=== PATIENT | male | born 1945 | race Caucasian/White ===

== ENCOUNTER 2016-08-01 18:09 | Inpatient (IN) | payer MEDICARE, MEDICAID ==
[~2016-08-01] VITALS: Ht 172.7 cm; Wt 68.5 kg
[2016-08-01] MEDS ORDERED: TERA10CA4 PO (19:15)
[2016-08-01] MEDS ORDERED: CLOP75TA2 PO (19:15)
[2016-08-01] MEDS ORDERED: PANT40TA4 PO (19:15)
[2016-08-01] MEDS ORDERED: ISOS30TA6 PO (19:15)
[2016-08-01 19:30] VITALS: BP 109/68
--- NOTE | 2016-08-01 19:30 | NUR ---
GPS ADMISSION NOTE, RECEIVED PATIENT FROM [facility] / [facility] / [facility] . PATIENT ARRIVED ON THIS UNIT AT 1930 VIA WHEELCHAIR 1 MANUAL LATHE OPERATOR ESCORT. PATIENT ADMITTED ON A 5150 HOLD FOR DTS. PER HOLD PATIENT HAS NUMEROUS MEDICAL COMPLAINTS. PATIENT REPORTED RECURRING INTRUSIVE THOUGHTS OF KILLING HIMSELF BY STEPPING IN FRONT OF A BUS OR VEHICLE THAT WOULD BE UNABLE TO STOP. PATIENT UNABLE TO CONTRACT FOR SAFETY, HOPELESS, FRIENDLESS, AND SEVERELY DEPRESSED. PATIENT PRESENT'S A CLEAR AND PRESENT DANGER TO HIMSELF DUE TO HIS MENTAL ILLNESS. THE 5150 WAS REVIEWED AND THE DOCUMENTATION IN THE 5150 HOLD APPEARS TO REFLECT THE PRESENTATION OF THE PATIENT. UPON FACE TO FACE ASSESSMENT PATIENT IS CURRENTLY LYING IN BED AWAKE, HAS NO S/S OR COMPLAINTS OF PAIN. PATIENT IS DISPLAYING NO S/S OF APPARENT DISTRESS. PATIENT BREATHING IS UNLABORED WITH EQUAL RISE AND FALL OF THE CHEST. PATIENT IS ALERT AND ORIENTATED X 3 ON ROOM AIR. PATIENT ASSISTED WITH TURING AND REPOSITIONING Q2HR AND PRN FOR COMFORT AND CIRCULATION. PATIENT HAS NO NEEDS AT THIS TIME. PATIENT IS NOTED TO BEING RESTLESS, ANXIOUS, DISHEVELED, DISORGANIZED, DEPRESSED, COOPERATIVE, AND NEEDS SOME REDIRECTION. PATIENT UNABLE TO CONTRACT FOR SAFETY. PATIENT IS UNDER THE PSYCHIATRIC CARE OF DR. CRAIG AND THE MEDICAL CARE OF DR JOSHI. PATIENT BELONGINGS WERE INVENTORIED AND CHECKED FOR CONTRABAND. ALL CONTRABAND REMOVED AND STORED IN PATIENT HALLWAY LOCKER. PATIENT ADVANCED DIRECTIVES PREFERENCE, IMMUNIZATIONS QUESTIONER, NECESSARY PAPERWORK, AND SKIN ASSESSMENT COMPLETED. PATIENT ORIENTATED TO ROOM, FLOOR, AND STAFF WITH ALL QUESTIONS ANSWERED. PATIENT EDUCATED ON THE USE OF THE CALL RUIZ. PATIENT BED SIDE RAILS ARE UP X 2 FOR SAFETY. PATIENT BED IS LOCKED, LOW, AND I WILL CONTINUE TO MONITOR THIS PATIENT Q 15 MIN WITH THE HELP OF STAFF TO MAINTAIN SAFETY.
[2016-08-01] MEDS ORDERED: FLUT1DIS INH (19:51)
[2016-08-01] MEDS ORDERED: QUET100T PO (19:52)
[2016-08-01] MEDS ORDERED: NITR0.4T6 SL (19:54)
[2016-08-01] MEDS ORDERED: CARV3.122 PO (19:56)
[2016-08-01] MEDS ORDERED: ALBU6.7H INH (19:57)
[2016-08-01] MEDS ORDERED: ASPI81TA2 PO (20:00)
[2016-08-01] MEDS ORDERED: DICL100G3 TP (20:00)
[2016-08-01] MEDS ORDERED: MAG HYDROX/AL HYDROX/SIMETH 30 ML UDC PO PRN (20:00)
[2016-08-01] MEDS ORDERED: LORAZEPAM 0.5 MG TABLET PO PRN (20:00)
[2016-08-01] MEDS ORDERED: MAGNESIUM HYDROXIDE 30 ML UDC PO PRN (20:00)
[2016-08-01] MEDS ORDERED: ACETAMINOPHEN 325 MG TABLET PO PRN (20:00)
--- NOTE | 2016-08-01 20:00 | NUR ---
GPS RN NOTE, PATIENT REFUSED TO HAVE A NICOTINE PATCH STATING, " I DON'T NEED USE A PATCH ". EDUCATED THE PATIENT ON THE RISKS AND BENEFITS OF TAKING AND REFUSING AFOREMENTIONED MEDICATION. WILL CONTINUE TO MONITOR THIS PATIENT.
[2016-08-01 20:04] VITALS: BP 109/68
[2016-08-01] MEDS ORDERED: NITROGLYCERIN 0.4 MG/TAB BOTTLE SL PRN (20:30)
[2016-08-01] MEDS: TEMAZEPAM 7.5 MG CAPSULE PO PRN (22:58)
--- NOTE | 2016-08-01 22:58 | NUR ---
GPS RN NOTE, PATIENT HAS A COMPLAINT OF NOT BEING ABLE TO SLEEP AND WOULD LIKE A SLEEPING AID AT THIS TIME. PATIENT VITAL SIGNS ARE STABLE. GAVE RESTORIL 7.5MG PO HS ORDERED. WILL REASSESS FOR INSOMNIA AND I WILL CONTINUE TO MONITOR THIS PATIENT.
[2016-08-02] MEDS ORDERED: ALBUTEROL FS 2.5 MG/3 ML VIAL.NEB NEB PRN (01:30)
[2016-08-02 06:48] LABS: CHOLESTEROL 176 mg/dL (<200); HDL CHOLESTEROL 66 mg/dL (40-60); LDL 73 mg/dL (0-99); TRIGLYCERIDES 151 mg/dL (30-150)
[2016-08-02 07:05] LABS: ALANINE AMINOTRANSFERASE 17 U/L (12-78); ALKALINE PHOSPHATASE 89 U/L (46-116); ASPARTATE AMINOTRANSFERASE 12 U/L (15-37); BILIRUBIN,TOTAL 0.2 mg/dL (0.2-1.0); CARBON DIOXIDE 25 mmol/L (21-32); CHLORIDE 105 mmol/L (98-107); CREATININE 0.6 mg/dL (0.6-1.3); GLUCOSE 97 mg/dL (74-106); POTASSIUM 4.3 mmol/L (3.5-5.1); SODIUM SERUM 140 mmol/L (136-145); TOTAL PROTEIN, SERUM 6.4 g/dL (6.4-8.2); UREA NITROGEN, BLOOD 13 mg/dL (7-18)
[2016-08-02 08:00] VITALS: BP 136/69
[2016-08-02] MEDS: FLUTICASONE/SALMETEROL DISKUS IH SCH ×2 (08:16→16:44)
[2016-08-02] MEDS: PANTOPRAZOLE 40 MG TABLET.DR PO SCH (08:17)
[2016-08-02] MEDS: ASPIRIN 81 MG TAB.CHEW PO SCH (08:17)
[2016-08-02] MEDS: CARVEDILOL 3.125 MG TABLET PO SCH ×2 (08:17→16:44)
[2016-08-02] MEDS: CLOPIDOGREL BISULFATE 75 MG TABLET PO SCH (08:18)
[2016-08-02] MEDS: TERAZOSIN HCL 5 MG CAPSULE PO SCH (08:18)
[2016-08-02] MEDS: NICOTINE PATCH (7MG) 7 MG PATCH.TD24 TD SCH (08:18)
[2016-08-02] MEDS: ISOSORBIDE MONONITRATE (30MG) 30 MG TAB.SR.24H PO SCH (08:18)
[2016-08-02 16:00] VITALS: BP 146/71
--- NOTE | 2016-08-02 17:05 | NUR ---
Initial Discharge plan :Pt. states he was staying at a room and board located at [address] [place] [address] but is unable to provide a phone number for SW to confirm. He also states he may leave there and go stay somewhere else and can provide different addresses if needed. SW will follow up with MD and will help form safe and proper discharge.
[2016-08-02 20:00] VITALS: BP 118/58
[2016-08-02] MEDS: TEMAZEPAM 7.5 MG CAPSULE PO PRN (20:29)
[2016-08-02] MEDS: QUETIAPINE FUMARATE 100 MG TABLET PO SCH (21:51)
[2016-08-03 08:00] VITALS: BP 139/68
[2016-08-03] MEDS: ESCITALOPRAM OXALATE (10 MG) 10 MG TABLET PO SCH (08:18)
[2016-08-03] MEDS: FLUTICASONE/SALMETEROL DISKUS IH SCH ×2 (08:18→16:14)
[2016-08-03] MEDS: CARVEDILOL 3.125 MG TABLET PO SCH ×2 (08:19→16:14)
[2016-08-03] MEDS: ISOSORBIDE MONONITRATE (30MG) 30 MG TAB.SR.24H PO SCH (08:19)
[2016-08-03] MEDS: PANTOPRAZOLE 40 MG TABLET.DR PO SCH (08:19)
[2016-08-03] MEDS: CLOPIDOGREL BISULFATE 75 MG TABLET PO SCH (08:19)
[2016-08-03] MEDS: ASPIRIN 81 MG TAB.CHEW PO SCH (08:20)
[2016-08-03] MEDS: TERAZOSIN HCL 5 MG CAPSULE PO SCH (08:20)
[2016-08-03] MEDS: NICOTINE PATCH (7MG) 7 MG PATCH.TD24 TD SCH (09:00)
[2016-08-03 16:00] VITALS: BP 100/56
[2016-08-03 20:00] VITALS: BP 119/50
[2016-08-03 20:44] VITALS: BP 119/65
[2016-08-03] MEDS: QUETIAPINE FUMARATE 100 MG TABLET PO SCH (21:12)
[2016-08-04] MEDS: PANTOPRAZOLE 40 MG TABLET.DR PO SCH (07:50)
[2016-08-04 08:05] VITALS: BP 137/67
[2016-08-04] MEDS: ASPIRIN 81 MG TAB.CHEW PO SCH (08:25)
[2016-08-04] MEDS: CLOPIDOGREL BISULFATE 75 MG TABLET PO SCH (08:26)
[2016-08-04] MEDS: ESCITALOPRAM OXALATE (10 MG) 10 MG TABLET PO SCH (08:26)
[2016-08-04] MEDS: ISOSORBIDE MONONITRATE (30MG) 30 MG TAB.SR.24H PO SCH (08:27)
[2016-08-04] MEDS: CARVEDILOL 3.125 MG TABLET PO SCH ×2 (08:27→18:03)
[2016-08-04] MEDS: TERAZOSIN HCL 5 MG CAPSULE PO SCH (08:27)
[2016-08-04] MEDS: NICOTINE PATCH (7MG) 7 MG PATCH.TD24 TD SCH (08:28)
[2016-08-04] MEDS: FLUTICASONE/SALMETEROL DISKUS IH SCH ×2 (08:30→18:03)
[2016-08-04] MEDS ORDERED: ALBUTEROL FS 2.5 MG/0.5 ML VIAL.NEB NEB PRN (13:30)
[2016-08-04 16:19] VITALS: BP 116/58
[2016-08-04 20:00] VITALS: BP 116/61
[2016-08-04] MEDS: QUETIAPINE FUMARATE 100 MG TABLET PO SCH (22:13)
[2016-08-05] MEDS: PANTOPRAZOLE 40 MG TABLET.DR PO SCH (07:39)
[2016-08-05] MEDS: FLUTICASONE/SALMETEROL DISKUS IH SCH ×2 (07:55→16:59)
[2016-08-05] MEDS: ESCITALOPRAM OXALATE (10 MG) 10 MG TABLET PO SCH (07:56)
[2016-08-05 08:00] VITALS: BP 110/49
[2016-08-05] MEDS: ISOSORBIDE MONONITRATE (30MG) 30 MG TAB.SR.24H PO SCH (08:00)
[2016-08-05] MEDS: ASPIRIN 81 MG TAB.CHEW PO SCH (08:01)
[2016-08-05] MEDS: CARVEDILOL 3.125 MG TABLET PO SCH ×2 (08:02→17:37)
[2016-08-05] MEDS: TERAZOSIN HCL 5 MG CAPSULE PO SCH (08:02)
[2016-08-05] MEDS: CLOPIDOGREL BISULFATE 75 MG TABLET PO SCH (08:03)
[2016-08-05] MEDS: NICOTINE PATCH (7MG) 7 MG PATCH.TD24 TD SCH (08:03)
[2016-08-05 16:00] VITALS: BP 120/60
[2016-08-05 20:12] VITALS: BP 119/57
[2016-08-05] MEDS: QUETIAPINE FUMARATE 100 MG TABLET PO SCH (21:33)
--- NOTE | 2016-08-05 22:00 | NUR ---
RN NOTES SKIN REASSESS PICTURE TAKEN PLACED IN THE CHART, RIGHT ARM/ LEFT ARM NO BRUISES NOTED SKIN INTACT AND CLEAR .
[2016-08-06 08:00] VITALS: BP 106/62
[2016-08-06] MEDS: PANTOPRAZOLE 40 MG TABLET.DR PO SCH (08:01)
[2016-08-06] MEDS: ISOSORBIDE MONONITRATE (30MG) 30 MG TAB.SR.24H PO SCH (08:35)
[2016-08-06] MEDS: ESCITALOPRAM OXALATE (10 MG) 10 MG TABLET PO SCH (08:36)
[2016-08-06] MEDS: ASPIRIN 81 MG TAB.CHEW PO SCH (08:36)
[2016-08-06] MEDS: CARVEDILOL 3.125 MG TABLET PO SCH ×3 (08:36→17:12)
[2016-08-06] MEDS: CLOPIDOGREL BISULFATE 75 MG TABLET PO SCH (08:36)
[2016-08-06] MEDS: FLUTICASONE/SALMETEROL DISKUS IH SCH ×2 (08:37→17:10)
[2016-08-06] MEDS: TERAZOSIN HCL 5 MG CAPSULE PO SCH (08:39)
[2016-08-06] MEDS: NICOTINE PATCH (7MG) 7 MG PATCH.TD24 TD SCH (08:39)
--- NOTE | 2016-08-06 09:11 | NUR ---
WYATT was asked to call [facility] [phone] to confirm that pt's electric wheelchair is still being held there and is in a safe place. WYATT was notified that pt. cannot return back to the room and board that the patient came from. Addendum: 08/10/16 at 0915 by ROBERT SCHNEIDER Information was provided by KD from intake, as she was told by the hospital from which he was referred to that the patient was homeless.
[2016-08-06 16:00] VITALS: BP 128/58
[2016-08-06] MEDS: QUETIAPINE FUMARATE 100 MG TABLET PO SCH (21:39)
[2016-08-06 22:36] VITALS: BP 124/64
[2016-08-07 08:00] VITALS: BP 155/61
[2016-08-07] MEDS: CLOPIDOGREL BISULFATE 75 MG TABLET PO SCH (08:02)
[2016-08-07] MEDS: NICOTINE PATCH (7MG) 7 MG PATCH.TD24 TD SCH (08:02)
[2016-08-07] MEDS: ESCITALOPRAM OXALATE (10 MG) 10 MG TABLET PO SCH (08:03)
[2016-08-07] MEDS: TERAZOSIN HCL 5 MG CAPSULE PO SCH (08:03)
[2016-08-07] MEDS: PANTOPRAZOLE 40 MG TABLET.DR PO SCH (08:04)
[2016-08-07] MEDS: ISOSORBIDE MONONITRATE (30MG) 30 MG TAB.SR.24H PO SCH (08:04)
[2016-08-07] MEDS: ASPIRIN 81 MG TAB.CHEW PO SCH (08:04)
[2016-08-07] MEDS: CARVEDILOL 3.125 MG TABLET PO SCH ×2 (08:05→16:37)
[2016-08-07] MEDS: FLUTICASONE/SALMETEROL DISKUS IH SCH ×2 (08:11→17:06)
--- NOTE | 2016-08-07 09:06 | NUR ---
Pt. was notified that the the room and board won't be able to accept him back and he will need placement. Pt. continues to insist that he can find a place to live in [place] as he knows the area and has friends that will help him out. SW regardless will look for an accepting facility, in case pt. decides to accept the placement option
[2016-08-07 16:00] VITALS: BP 120/54
[2016-08-07 21:26] VITALS: BP 97/60
[2016-08-07] MEDS: QUETIAPINE FUMARATE 100 MG TABLET PO SCH (21:30)
[2016-08-08 08:11] VITALS: BP 131/69
[2016-08-08] MEDS: CLOPIDOGREL BISULFATE 75 MG TABLET PO SCH (08:41)
[2016-08-08] MEDS: PANTOPRAZOLE 40 MG TABLET.DR PO SCH (08:41)
[2016-08-08] MEDS: ASPIRIN 81 MG TAB.CHEW PO SCH (08:41)
[2016-08-08] MEDS: ISOSORBIDE MONONITRATE (30MG) 30 MG TAB.SR.24H PO SCH (08:41)
[2016-08-08] MEDS: NICOTINE PATCH (7MG) 7 MG PATCH.TD24 TD SCH (08:41)
[2016-08-08] MEDS: CARVEDILOL 3.125 MG TABLET PO SCH ×2 (08:41→16:56)
[2016-08-08] MEDS: ESCITALOPRAM OXALATE (10 MG) 10 MG TABLET PO SCH (08:41)
[2016-08-08] MEDS: TERAZOSIN HCL 5 MG CAPSULE PO SCH (08:42)
[2016-08-08] MEDS: FLUTICASONE/SALMETEROL DISKUS IH SCH ×2 (08:51→16:58)
--- NOTE | 2016-08-08 15:00 | NUR ---
SW spoke with interstate planner Kp from [facility] [address] [facility] [place] [address] pt. is homeless and cannot return back to the room and board he was living at. Pt. has no where to go and is homeless. Pt[facility] automatic [facility] [address] [facility] .
[2016-08-08 16:14] VITALS: BP 98/54
[2016-08-08 20:18] VITALS: BP 122/66
[2016-08-08] MEDS: QUETIAPINE FUMARATE 100 MG TABLET PO SCH (21:27)
[2016-08-09 08:00] VITALS: BP 124/54
[2016-08-09] MEDS: ESCITALOPRAM OXALATE (10 MG) 10 MG TABLET PO SCH (08:09)
[2016-08-09] MEDS: FLUTICASONE/SALMETEROL DISKUS IH SCH ×2 (08:09→16:27)
[2016-08-09] MEDS: NICOTINE PATCH (7MG) 7 MG PATCH.TD24 TD SCH (08:11)
[2016-08-09] MEDS: ASPIRIN 81 MG TAB.CHEW PO SCH (08:11)
[2016-08-09] MEDS: CLOPIDOGREL BISULFATE 75 MG TABLET PO SCH (08:11)
[2016-08-09] MEDS: TERAZOSIN HCL 5 MG CAPSULE PO SCH (08:11)
[2016-08-09] MEDS: ISOSORBIDE MONONITRATE (30MG) 30 MG TAB.SR.24H PO SCH (08:12)
[2016-08-09] MEDS: PANTOPRAZOLE 40 MG TABLET.DR PO SCH (08:12)
[2016-08-09] MEDS: CARVEDILOL 3.125 MG TABLET PO SCH ×2 (08:14→16:34)
[2016-08-09 16:00] VITALS: BP 115/59
--- NOTE | 2016-08-09 16:28 | NUR ---
Pt.was referred to [facility] [address] [place] [address] will follow up wtih CJ
--- NOTE | 2016-08-09 16:40 | NUR ---
WYATT spoke with pt and pt. continues to refuse placement and wants to return back to [place], [place] to search for placement there. Pt. states he has friends there and will be able to find a perfect living arrangement for himself. WYATT spoke with Maureen from [facility] [phone] and he agreed to order picker/assembler the patient tomorrow. Maureen mentioned that pt. may be placed in a homeless senior care until further living arrangements are made. Pt. agrees with this plan. Will confirm with director and psychiatrist tomorrow.
[2016-08-09 20:00] VITALS: BP 141/66
[2016-08-09] MEDS: QUETIAPINE FUMARATE 100 MG TABLET PO SCH (21:12)
[2016-08-10] MEDS: ASPIRIN 81 MG TAB.CHEW PO SCH (08:27)
[2016-08-10] MEDS: ESCITALOPRAM OXALATE (10 MG) 10 MG TABLET PO SCH (08:27)
[2016-08-10] MEDS: TERAZOSIN HCL 5 MG CAPSULE PO SCH (08:27)
[2016-08-10] MEDS: PANTOPRAZOLE 40 MG TABLET.DR PO SCH (08:27)
[2016-08-10] MEDS: NICOTINE PATCH (7MG) 7 MG PATCH.TD24 TD SCH (08:28)
[2016-08-10] MEDS: CLOPIDOGREL BISULFATE 75 MG TABLET PO SCH (08:28)
[2016-08-10] MEDS: CARVEDILOL 3.125 MG TABLET PO SCH (08:31)
[2016-08-10] MEDS: ISOSORBIDE MONONITRATE (30MG) 30 MG TAB.SR.24H PO SCH (08:31)
[2016-08-10] MEDS ORDERED: FLUTICASONE/VILANTEROL 1 EACH BLST.W.DEV IH SCH (09:00)
--- NOTE | 2016-08-10 10:25 | NUR ---
gps tooth cutter: notes spoke to vish posada) and keith for discharge home. pt will be picked up by a lease purchase truck driver and bring pt to [facility] and a friend will meet up to look for placement. pt verbalized understanding. Addendum: 08/10/16 at 1028 by BREANNA GAMEZ LVN [facility]
--- NOTE | 2016-08-10 10:27 | NUR ---
WYATT spoke with pt again and notified him that he has been accepted to [facility] [id number] [place] [address] and he is agreeing to be discharged there instead of returning to [place]. WYATT called to cancel the transportation excelsior picker and spoke with Arvind from the formerly [facility] [phone]. Arvind requested a fax to [phone] requesting to cancel the transportation. WYATT will fax.
--- NOTE | 2016-08-10 11:00 | NUR ---
RN-CO: DR POLO MAINTENANCE SUPERINTENDENT FOR DR CRAIG ORDERED TO DISCHARGE PATIENT TODAY AND DISCONTINUE HOLD, NOTED AND CARRIED OUT.
--- NOTE | 2016-08-10 11:25 | NUR ---
gps steel loader: notes about to give discharge instructions when juan francisco (social science teacher) informed me that pt change his mind and wants to go to snf instead. pt aware. cn made aware. notified and made aware. pt stable for discharge, denies si/hi. juan francisco (social science teacher) making arrangement.
--- NOTE | 2016-08-10 11:50 | NUR ---
gps airplane mechanic: notes report given to cheyanne barnard) at [facility] for continuity of care.
--- NOTE | 2016-08-10 14:00 | NUR ---
gps porcelain mixer: notes discharged instructions given to pt and verbalized understanding. pt has no family as stated. awaiting for ambulance to pick him up. pt medically stable for discharge. denies si/hi at time. denies visual or auditory hallucinations at time.
--- NOTE | 2016-08-10 14:54 | NUR ---
gps food assembler kitchen: notes ambulance called and informed us that they are running an hour late. pt made aware.
--- NOTE | 2016-08-10 14:54 | NUR ---
Discharge note: Pt. was discharged to [facility] [id number] [place] [address] by [facility]. Pt. agreed with the plan and was calm and cooperative. Pt denied suicidal/homicidal ideations. Discharge instructions have been provided to the accepting facility and discharge paperwork has been signed prior to discharge. Pt. will follow up with Dr Fernandez at the facility on August 13 at 10:30AM to discuss alcohol dependency. Pt. was also provided Nicotine Anonymous telephone meeting information to participate in on Sun at 6:00 PM [phone] PIN: [id number]# Primary Purpose Open Discussion and pt. agreed.
--- NOTE | 2016-08-10 16:45 | NUR ---
gps character actress: notes med response here and report given to one of the crew.
--- NOTE | 2016-08-10 16:55 | NUR ---
gps blueprinter: discharged discharged to snf via ambulance with all belongings/valuables in stable condition. pt denies si/hi, auditory or visual hallucinations prior to discharge.
[2016-08-10 16:59] VITALS: BP 133/52
== END 2016-08-10 16:55 | DRG 885 ==
LOC: GPS 18:09
PROVIDERS: ADMIT Psychiatry & Neurology Psychiatry; ATTEND Internal Medicine
DX: F33.2 Major depressive disorder, recurrent severe without psychotic features (principal); Z73.6 Limitation of activities due to disability; I25.10 Atherosclerotic heart disease of native coronary artery without angina pectoris; F41.9 Anxiety disorder, unspecified; F17.210 Nicotine dependence, cigarettes, uncomplicated; I10 Essential (primary) hypertension; I73.9 Peripheral vascular disease, unspecified; J44.9 Chronic obstructive pulmonary disease, unspecified; N40.0 Benign prostatic hyperplasia without lower urinary tract symptoms; Z59.0 Homelessness; I25.2 Old myocardial infarction; Z98.61 Coronary angioplasty status; F29 Unspecified psychosis not due to a substance or known physiological condition; Z79.899 Other long term (current) drug therapy
CPT/HCPCS: 36415; 80053-TC; 80061-TC; 87081-TC